=== PATIENT | female | born 1965 ===

== ENCOUNTER 2017-09-23 18:05 | Emergency (ER) | payer OTHER ==
--- NOTE | 2017-09-23 22:06 | UC ---
Ear Complaint HPI - HPI Summary HPI Summary: 51 yo female c/o left ear pain after flight associated with recent URI sx of nasal congestion, got over the flu 2.5 weeks ago but has nagging residual sx of congestion, cough and new left ear pain - History of Current Complaint Chief Complaint: UCRespiratory Stated Complaint: URI Time Seen by Provider: 09/23/17 21:22 Hx Obtained From: Patient Onset/Duration: Lasting Days Pain Intensity: 5 - Allergies/Home Medications Allergies/Adverse Reactions: Allergies Allergy/AdvReac Type Severity Reaction Status Date / Time No Known Allergies Allergy Verified 09/23/17 20:28 PMH/Surg Hx/FS Hx/Imm Hx Previously Healthy: Yes - Surgical History Surgical History: Yes Surgery Procedure, Year, and Place: Ear - Social History Alcohol Use: None Substance Use Type: None Smoking Status (MU): Never Smoked Tobacco Review of Systems Constitutional: Negative Skin: Negative Eyes: Negative ENT: Sore Throat, Nasal Discharge, Sinus Congestion Respiratory: Cough Cardiovascular: Negative Gastrointestinal: Negative Genitourinary: Negative Motor: Negative Neurovascular: Negative Musculoskeletal: Negative Neurological: Negative Psychological: Negative All Other Systems Reviewed And Are Negative: Yes Physical Exam Triage Information Reviewed: Yes Appearance: No Pain Distress Vital Signs: Initial Vital Signs Temp 36.8 C 09/23/17 20:23 Pulse 84 09/23/17 20:23 Resp 18 09/23/17 20:23 BP 116/75 09/23/17 20:23 Pulse Ox 99 09/23/17 20:23 Eye Exam: Normal ENT Exam: Normal ENT: Positive: Nasal congestion, Nasal drainage, TM red - L>R Dental Exam: Normal Neck exam: Normal Neck: Positive: 1 Respiratory Exam: Normal Respiratory: Positive: Lungs clear Cardiovascular Exam: Normal Abdominal Exam: Normal Musculoskeletal Exam: Normal Neurological Exam: Normal Psychological Exam: Normal Skin Exam: Normal Ear Complaint Course/Dx - Course Course Of Treatment: recent URi, post-influenza, now with PND with productive cough, and in light nof recent flight has some eustachian tube dysfunction. take meds as prescribed - Differential Dx/Diagnosis Differential Diagnosis/HQI/PQRI: Barotrauma, Otitis Media, Pharyngitis Provider Diagnoses: Left OM. Barotrauma. URI. viral cough Discharge - Discharge Plan Condition: Stable Disposition: HOME Prescriptions: Amoxicillin PO (*) [Amoxicillin 500 MG CAP*] 500 mg PO Q12H 7 Days #14 cap Pseudoephedrine HCL ER TAB* [Sudafed 12 Hour*] 120 mg PO BID 5 Days #10 tab.er Patient Education Materials: Pseudoephedrine (By mouth), Ear Infection (ED), Barotrauma (ED) Referrals: No Primary Care Phys,NOPCP [Primary Care Provider] - Additional Instructions: Benadryl at night, Take prescribed medications as directed
[2017-09-23] MEDS ORDERED: Amoxicillin PO (*) 500 MG CAP PO ONE (22:28)
== END 2017-09-23 22:30 | disposition home or self-care (01) ==
LOC: UCEAST 18:05
DX: J06.9 Acute upper respiratory infection, unspecified (principal); H66.92 Otitis media, unspecified, left ear; T70.29XA Other effects of high altitude, initial encounter; X58.XXXA Exposure to other specified factors, initial encounter
CPT/HCPCS: 99202; A9270-GY; G0463